=== PATIENT | female | born 1980 | race Caucasian/White ===

== ENCOUNTER 2018-02-28 20:20 | Inpatient (IN) ==
[2018-02-28] MEDS ORDERED: ONDANSETRON 4 MG/2 ML VIAL IVP ONE (20:46)
[2018-02-28] MEDS ORDERED: MORPHINE SULFATE 4 MG/1 ML IVP ONE (20:46)
[2018-02-28] MEDS ORDERED: Sodium Chloride 0.9% 1,000 ML PRIMARY IV ONE (20:46)
--- NOTE | 2018-02-28 20:51 | PDOC ---
Abdomen/Flank HPI - General Chief Complaint: Abdomen Pain Stated Complaint: ABDOMEN PAIN WITH N/V Date Seen by Provider: 02/28/18 Time Seen by Provider: 20:40 Source: POSITIVE: Patient Exam Limitations: POSITIVE: No limitations Nurse's Notes Reviewed & Considered: Yes - History of Present Illness Initial Comments: The patient is a 37-year-old female who presents to the emergency department with increased abdominal pain and vomiting. She states that she had seen her primary care provider earlier this week and had complained about a swelling in her right upper abdomen. She underwent ultrasound which revealed a distended gallbladder with gallstones. She was not really having any particular pain associated with that at that time. The patient had decided she was going to try and dissolve the gallstones with apple cider vinegar. She states that she started to develop some pain in the right upper quadrant yesterday. This pain is significantly worsened today and is associated with nausea and vomiting. She denies any fevers or chills or any other associated symptoms. She has not had any prior abdominal surgeries except for tubal ligation. She is being treated for bacterial vaginitis with Flagyl which is a new medication for her. - Patient Home Medications Home Medications: Home Medications buspirone 10 mg tablet 20 mg PO TID tab 12/13/17 Clonazepam [Klonopin] 0.5 mg PO DAILY 12/23/17 Trazodone HCl 50 mg PO BEDTIME 12/23/17 buprenorphine HCl 2 mg sublingual tablet 2 mg SL TID tab 02/20/18 duloxetine 30 mg capsule,delayed release 30 mg PO QDAY 02/20/18 duloxetine 60 mg capsule,delayed release 60 mg PO QDAY 02/20/18 metronidazole 500 mg tablet 500 mg PO BID #14 tab 02/24/18 - Patient Allergies Allergies/Adverse Reactions: Allergies 3 Allergy/AdvReac Type Severity Reaction Status Date / Time No Known Allergies Allergy Verified 02/28/18 21:56 Past Medical History - heen HEENT History: Denies History Cardiovascular History: Denies History Respiratory History: Denies History Gastrointestinal History: Denies History Genitourinary History: Denies History Endocrine History: Denies History Musculoskeletal History: Denies History Neurological History: Denies History Blood Disorders: Denies History Psychiatric History: Depression, Anxiety Disorders, Eating Disorders, Substance Abuse, Self-Harm Disorders, PTSD History of Sexually Transmitted Diseases: No Cancer History: Denies History History of MDRO: No History of Other Communicable Diseases: No In the Past 12 Months, Have Used or Abuse Any Substance: None Previous Surgical History: No Significant Family History: No pertinent family hx Past Medical History Reviewed: Reviewed - No Changes ROS - Limitations ROS Limitations: No Limitations Constitution: DENIES: Chills, Fever Cardiovascular: REPORTS: Denies Cardiac Symptoms Respiratory: REPORTS: Denies Resp Symptoms Neurological: REPORTS: Denies Neuro Symptoms Gastrointestinal: REPORTS: Abdominal Pain, Nausea, Vomitting Musculoskeletal: REPORTS: Denies MS Symptoms Genitourinary: REPORTS: Denies Symptoms Eyes: REPORTS: Denies Symptoms ENT: REPORTS: Denies Symptoms Skin: DENIES: Rash Abdominal/Flank Pain PE - General Appearance General Appearance: POSITIVE: Alert, Cooperative, No Acute Distress - HEENT HEENT: POSITIVE: Head Inspection Nml - Respiratory Respiratory: POSITIVE: No Respiratory Distress, Breath Sounds Normal - Cardiovascular Cardiovascular: POSITIVE: Regular Rate and Rhythm, Heart Sounds Normal - Abdomen Abdomen: Soft: (All Quadrants), Normal Bowel Sounds: (All Quadrants) Additional Abdominal Details: She does have an area of swelling in the right upper quadrant with associated tenderness even to light palpation, no guarding or rebound tenderness - Skin Skin: POSITIVE: Intact, No Rash - Extremities Extremity: Normal ROM: (All Extremities), Normal Inspection: (All Extremities) - Neurological Neurological: POSITIVE: Oriented X3, project management consultant Normal As Tested, Motor Normal, Sensation Normal Abdomen Progress - Results Reviewed by me Lab Results Reviewed by Me: Yes CBC and BMP: 02/28/18 20:55 02/28/18 21:14 - Patient's Progress MDM / ED Course: On arrival the patient is rating her pain a 7 or 8 out of 10. An IV was established and she received 1 L bolus of normal saline as well as morphine 4 mg IV and Zofran 4 mg IV. She did not really have any significant pain relief with administration of morphine. Lab work reveals normal white count, normal liver enzymes and normal pancreas enzymes. I did discuss the patient with Dr. Montiel. He recommended admission for pain control and likely cholecystectomy. I did discuss the patient with Dr. Allen. The patient does have known cholelithiasis and now has increased pain and tenderness on exam. Decision was made to go ahead and cover with Rocephin and the patient is already taking Flagyl. The patient will be kept nothing by mouth after midnight. These findings and recommendations were discussed with the patient and she is in agreement with this plan. She did receive Dilaudid 1 mg IV for pain. - Consult Counseled: POSITIVE: Patient, RE: Lab Results, RE: DX, RE: Need for F/U Patient Care Time - Estimated PCT Patient Care Time (In Minutes): 30 Vital Signs - VS Reviewed Vital Signs Reviewed: Yes Discharge Clinical Impression: Cholelithiasis, Cholecystitis Discharge Disposition: Admit to Inpatient Condition: Stable Date Decision to Admit to Inpatient: 02/28/18 Time Decision to Admit to Inpatient: 22:00
[2018-02-28 20:59] LABS: BASOPHILS # (AUTO) 0.05 10*3/UL; EOSINOPHILS # (AUTO) 0.11 10*3/UL; EOSINOPHILS % (AUTO) 2.2 % (0-8); Hematocrit [HCT] 36.4 % (37.0-47.0); Hemoglobin [HGB] 12.7 g/dL (12.0-16.0); LYMPHOCYTES # (AUTO) 1.79 10*3/uL; MEAN CORPUSCULAR HEMOGLOBIN 32.5 PG (27-31); MEAN CORPUSCULAR HGB CONC 34.9 g/dL (33-37); MEAN CORPUSCULAR VOLUME 93.1 FL (81-99); MEAN PLATELET VOLUME 9.2 FL (7.4-12.2); MONOCYTES # (AUTO) 0.44 10*3/UL (0.3-0.8); MONOCYTES % (AUTO) 8.9 % (5-15); NEUTROPHILS # (AUTO) 2.55 10*3/UL; NEUTROPHILS % (AUTO) 51.7 % (50-80); RED BLOOD COUNT 3.91 10^6/uL (4.20-5.40)
[2018-02-28 21:15] LABS: PLATELET MORPHOLOGY COMMENT NORMAL MORPHOLOGY (NORM); RBC MORPHOLOGY COMMENT NORMAL MORPHOLOGY (NORM); WBC MORPHOLOGY COMMENT NORMAL MORPHOLOGY (NORM)
[2018-02-28 21:30] LABS: BLOOD UREA NITROGEN 10 mg/dL (7-22); LIPASE 99 IU/L (23-300); SERUM ALBUMIN 3.3 g/dL (3.5-4.8)
[2018-02-28 21:48] LABS: BILIRUBIN,URINE NEGATIVE (NEG); CLARITY,URINE CLEAR (CLEAR); COLOR,URINE YELLOW (Y); GLUCOSE, URINE (UA) NEGATIVE (NEG); OCCULT BLOOD,URINE NEGATIVE (NEG); PROTEIN,URINE NEGATIVE (NEG)
[2018-02-28 21:50] LABS: URINE SAMPLE TYPE CLEAN CATCH URINE
[2018-02-28] MEDS ORDERED: HYDROmorphone 2 MG/1 ML IVP ONE (22:13)
[2018-02-28] MEDS ORDERED: cefTRIAXone Inj 1 GM in Sodium Chloride 0.9% 100 ML IV ONE (22:18)
[2018-02-28] MEDS ORDERED: ONDANSETRON 4 MG/2 ML VIAL IVP PRN (23:11)
[2018-02-28] MEDS ORDERED: LIDOCAINE W/ SODIUM BICARB 0.5 ML SYR SUBD PRN (23:11)
[2018-02-28] MEDS ORDERED: CALCIUM CARBONATE 500 MG (TUMS) CHEWABLE TABLET PO PRN (23:11)
[2018-02-28] MEDS ORDERED: traZODone Tab 50 MG TAB PO PRN (23:14)
--- NOTE | 2018-02-28 23:27 | PDOC ---
HPI - History of Present Illness Date of Service: 02/28/18 Time of Service: 23:00 Chief Complaint: Abdominal pain and vomiting today History of Present Illness: This is a 37 years old female with medical history significant for history of bipolar disorder with depression and anxiety who last Saturday had an ultrasound done because of abnormal physical examination and that ultrasound did show cholelithiasis. However she said she did not have significant abdominal pain. Today she had severe abdominal pain in the right upper quadrant with vomiting she vomited twice and because of that she came into the ER. Her CBC and BMP were normal. The case was discussed with Dr. Montiel who suggested admission. He did suggest admission to the hospitalist service and he'll see her in the morning. Because of the tenderness after discussion with the ER physician we did decide to give her antibiotics and until seen by Dr. Montiel. Apparently she was recently diagnosed with bacterial vaginosis and she is on Flagyl. She is denying fever or other symptoms. Past Medical History Medical History: 1. History of bipolar disorder with depression and anxiety. 2. History of chronic pain Surgical History: 1. History of for knee surgeries. 2. History of tubal ligation Past Social History: She smokes. doesn't drink nor drugs. She lives in a detention here in [place]. Tobacco Use: Current Every Day Smoker In the Past 12 Months, Have Used or Abuse Any of the Following Substance: None Alcohol Use: None Medication / Allergies Home Medications: Home Medications 3 Medication Instructions Recorded Confirmed Type buspirone 10 mg tablet 20 mg PO TID tab 12/13/17 02/28/18 History Clonazepam [Klonopin] 0.5 mg PO DAILY 12/23/17 02/28/18 History Trazodone HCl 50 mg PO BEDTIME 12/23/17 02/28/18 History buprenorphine HCl 2 mg sublingual 2 mg SL TID tab 02/20/18 02/28/18 History tablet duloxetine 30 mg capsule,delayed 30 mg PO QDAY 02/20/18 02/28/18 History release duloxetine 60 mg capsule,delayed 60 mg PO QDAY 02/20/18 02/28/18 History release metronidazole 500 mg tablet 500 mg PO BID #14 tab 02/24/18 02/28/18 Rx Allergies/Adverse Reactions: Allergies 3 Allergy/AdvReac Type Severity Reaction Status Date / Time No Known Allergies Allergy Verified 02/28/18 21:56 Review of Systems - Review of Systems All Systems: Reviewed & No Additional Complaints Except as Stated Exam - Vitals Vital Signs: Vital Signs Temperature 98.3 F Temperature Source Temporal Artery Scan Pulse Rate [Pulse Oximeter] 63 Pulse Rate 63 Respiratory Rate 16 Blood Pressure [Left Arm] 123/89 Blood Pressure 109/79 Pulse Ox 96 Oxygen Delivery Method Room Air Height 5 ft 7 in Weight 120 lb - General General Appearance: No Acute Distress, Cooperative, Thin - Head Head Exam: Normal Inspection - Eye Eye Exam: POSITIVE: Normal Appearance - ENT ENT Exam: POSITIVE: Normal Exam - Neck Neck Exam: Normal Inspection - Respiratory Respiratory Exam: POSITIVE: Clear to Auscultation - Bilaterally - Cardiovascular Cardiovascular Exam: POSITIVE: RRR - GI/Abdominal GI/Abdominal Exam: POSITIVE: Normal Bowel Sounds, Non Distended, Soft Additional GI/Abdominal Exam Details: Some tenderness in the right midabdomen. Question of a mass there. - Rectal Rectal Exam: POSITIVE: Deferred - External Exam: POSITIVE: Deferred Exam: POSITIVE: Deferred - Extremities Extremities Exam: POSITIVE: +1 Edema - Back Back Exam: POSITIVE: Normal Inspection - Neurological Neurological Exam: POSITIVE: Alert, Oriented x 3, CN II-XII Intact, No Facial Droop, Speech Intact / Clear, Moves All Extremities Equally - Psychiatric Psychiatric Exam: POSITIVE: Normal Affect - Integumentary Integumentary Exam: POSITIVE: Normal Color Results - Labs CBC and BMP: 03/01/18 04:30 03/01/18 04:30 Assessment and Plan - Patient Problems (1) Cholelithiasis Current Visit: Yes Status: Acute Comment: I think with the current symptoms of the tenderness will treat as cholecystitis. She did receive Rocephin will continue the Flagyl. Will write for pain medication will keep her nothing by mouth after midnight and will write for pain medication and surgery will see her in the morning. Code(s): K80.20 - Calculus of gallbladder without cholecystitis without obstruction (2) Chronic pain syndrome Current Visit: Yes Status: Acute Comment: She is on Subutex for it. now for the abdominal pain will put her on Dilaudid and will hold off on the Subutex. Code(s): G89.4 - Chronic pain syndrome (3) History of bipolar disorder Current Visit: Yes Status: Acute Comment: Continue her previous medications Code(s): Z86.59 - Personal history of other mental and behavioral disorders (4) Leg swelling Current Visit: Yes Status: Acute Comment: There is some edema in her legs. She is denying shortness of breath, her lung and heart examination is normal. Her albumin is low and she is very thin may be secondary to low albumin. This need follow-up later on as an outpatient. Will order ultrasound of her legs tomorrow. Code(s): M79.89 - Other specified soft tissue disorders
[2018-02-28] MEDS: Lactated Ringers 1,000 ML PRIMARY IV SCH (23:42)
[2018-02-28] MEDS: metroNIDAZOLE 500mg (Premix) 500 MG/100 ML BAG IV SCH (23:43)
[2018-02-28] MEDS: HYDROmorphone 2 MG/1 ML IVP PRN (23:58)
[2018-03-01 05:21] LABS: BASOPHILS # (AUTO) 0.03 10*3/UL; EOSINOPHILS # (AUTO) 0.12 10*3/UL; EOSINOPHILS % (AUTO) 3.9 % (0-8); Hemoglobin [HGB] 10.5 g/dL (12.0-16.0); LYMPHOCYTES # (AUTO) 1.47 10*3/uL; MEAN CORPUSCULAR HEMOGLOBIN 31.3 PG (27-31); MEAN CORPUSCULAR HGB CONC 32.8 g/dL (33-37); MEAN CORPUSCULAR VOLUME 95.2 FL (81-99); MEAN PLATELET VOLUME 10.1 FL (7.4-12.2); MONOCYTES # (AUTO) 0.26 10*3/UL (0.3-0.8); MONOCYTES % (AUTO) 8.4 % (5-15); NEUTROPHILS # (AUTO) 1.23 10*3/UL; NEUTROPHILS % (AUTO) 39.4 % (50-80); RED BLOOD COUNT 3.36 10^6/uL (4.20-5.40)
[2018-03-01 05:45] LABS: BLOOD UREA NITROGEN 11 mg/dL (7-22); BUN/CREATININE RATIO 13.75 (6-20); SERUM ALBUMIN 2.6 g/dL (3.5-4.8)
[2018-03-01 06:09] LABS: PLATELET MORPHOLOGY COMMENT NORMAL MORPHOLOGY (NORM); RBC MORPHOLOGY COMMENT NORMAL MORPHOLOGY (NORM); WBC MORPHOLOGY COMMENT NORMAL MORPHOLOGY (NORM)
[2018-03-01] MEDS: HYDROmorphone 2 MG/1 ML IVP PRN (07:21)
[2018-03-01] MEDS: metroNIDAZOLE 500mg (Premix) 500 MG/100 ML BAG IV SCH ×2 (07:21→15:10)
--- NOTE | 2018-03-01 08:53 | DI ---
EXAM: US Duplex Bilateral Lower Extremity Veins. CLINICAL HISTORY: REASON: Bilateral leg swelling TECHNIQUE: Real-time ultrasound scan of the veins of the bilateral lower extremities with color Doppler flow, spectral waveform analysis and compression. COMPARISON: No relevant prior studies available. FINDINGS: Deep veins: Unremarkable. No DVT in the common femoral, femoral or popliteal veins. Superficial veins: Unremarkable. No thrombus in the visualized greater saphenous veins. Soft tissues: No acute findings. No popliteal cyst. IMPRESSION: No deep venous thrombosis in the bilateral lower extremities.
[2018-03-01] MEDS ORDERED: DULOXETINE 60 MG CAPSULE PO SCH (09:00)
[2018-03-01] MEDS: Lactated Ringers 1,000 ML PRIMARY IV SCH (09:18)
--- NOTE | 2018-03-01 09:22 | CONSULT ---
Consult Note - Consult Consult Date: 03/01/18 Reason for Consult: PreOp Consulation : General Surgery Requesting Physician: Dr. Aleln and Dr. Jimenez Primary Care Provider: RADHA HARRIS - History of Present Illness History of Present Illness: This is a 37-year-old female who had a known history of gallstones. She was worked up by Radha Harris in the clinic. She had an ultrasound that showed a large stone in the neck of the gallbladder. Patient went home trying to see she get resolved with vinegar and apple juice. She came in the emergency department last night with severe right upper quadrant abdominal pain. Pain is a 10 out of 10. She states her notches barely uncomfortable but she is taken Dilaudid. She denies fevers chills. She does have associated nausea and vomiting. No hematochezia hematemesis or melena. Laboratory workup has been completely normal. Review of Systems - Constitutional Constitutional: REPORTS: Negative System Review - Integumentary Integumentary: REPORTS: Negative System Review - Eye Exam Eye Exam: REPORTS: Negative System Review - Ear/Nose Exam Ear/Nose Exam: REPORTS: Negative System Review - Mouth/Throat Mouth/Throat Exam: REPORTS: Negative System Review - Respiratory Respiratory: REPORTS: Negative System Review - Cardiovascular Cardiovascular: REPORTS: Negative System Review - Gastrointestinal Gastrointestinal / Abdominal: REPORTS: Nausea, Vomiting - Genitourinary Genitourinary: REPORTS: Negative System Review - Gynecological Gynecological: REPORTS: Negative System Review - Musculoskeletal Musculoskeletal: REPORTS: Back Pain (Patient has severe scoliosis) - Hematlogic / Lymphatic Hematologic / Lymphatic: REPORTS: Negative System Review - Neurological Neurologic: REPORTS: Negative System Review - Psychiatric Psychiatric: REPORTS: Anxiety, Depressed (Patient has bipolar disorder with depression and anxiety) Past Medical History Medical History: 1. History of bipolar disorder with depression and anxiety. 2. History of chronic pain Surgical History: 1. History of for knee surgeries. 2. History of tubal ligation Past Social History: She smokes. And Saturday, doesn't drink nor drugs. She lives in a care home here in [place]. Tobacco Use: Current Every Day Smoker In the Past 12 Months, Have Used or Abuse Any of the Following Substance: None Alcohol Use: None Medication / Allergies Home Medications: Home Medications 3 Medication Instructions Recorded Confirmed Type buspirone 10 mg tablet 20 mg PO TID tab 12/13/17 02/28/18 History Clonazepam [Klonopin] 0.5 mg PO DAILY 12/23/17 02/28/18 History Trazodone HCl 50 mg PO BEDTIME 12/23/17 02/28/18 History buprenorphine HCl 2 mg sublingual 2 mg SL TID tab 02/20/18 02/28/18 History tablet duloxetine 30 mg capsule,delayed 30 mg PO QDAY 02/20/18 02/28/18 History release duloxetine 60 mg capsule,delayed 60 mg PO QDAY 02/20/18 02/28/18 History release metronidazole 500 mg tablet 500 mg PO BID #14 tab 02/24/18 02/28/18 Rx Allergies/Adverse Reactions: Allergies 3 Allergy/AdvReac Type Severity Reaction Status Date / Time No Known Allergies Allergy Verified 02/28/18 21:56 Results - Labs CBC and BMP: 03/01/18 04:30 03/01/18 04:30 Exam - Vitals Vital Signs: Vital Signs Temperature 97.5 F Temperature Source Tympanic Pulse Rate [Pulse Oximeter] 61 Pulse Rate 63 Respiratory Rate 12 Blood Pressure [Right Arm] 81/58 Blood Pressure [Left Arm] 85/53 Blood Pressure 109/79 Pulse Ox 98 Oxygen Delivery Method Room Air Height 5 ft 7 in Weight 120 lb - General General Appearance: No Acute Distress - Head Head Exam: Normocephalic - Eye Eye Exam: POSITIVE: PERRL, EOMI - Respiratory Respiratory Exam: POSITIVE: Clear to Auscultation - Bilaterally, Breathing Non Labored - GI/Abdominal GI/Abdominal Exam: POSITIVE: Normal Bowel Sounds, Non Tender - Rectal Rectal Exam: POSITIVE: Deferred - External Exam: POSITIVE: Deferred - Extremities Extremities Exam: POSITIVE: Full ROM - Neurological Neurological Exam: POSITIVE: Alert, Oriented x 3, Reflexes Normal - Psychiatric Psychiatric Exam: POSITIVE: Normal Affect, Normal Mood Assessment and Plan - Patient Problems (1) Cholelithiasis Current Visit: Yes Status: Acute Code(s): K80.20 - Calculus of gallbladder without cholecystitis without obstruction - Assessment / Plan Additional Assessment/Plan Details: I would recommend the patient having a laparoscopic cholecystectomy. I have discussed the pathophysiology about gallstones and gallbladder disease. I have discussed the risk of surgery and the potential complications that could occur with the surgery. I also discussed alternative treatment options. I have gone over the surgical technique with the patient. The patient understands this information. I also discussed the difference between single site using the da Toby surgery and also the traditional laparoscopic surgery. The patient be scheduled at the first available date. Questions that the patient had were answered. CPT 72926
[2018-03-01] MEDS ORDERED: BUPIVACAINE 0.25% W/ EPI - 10 ML VIAL ONE (09:34)
[2018-03-01] MEDS ORDERED: Sodium Chloride 0.9% vial 20 ML ONE (09:34)
[2018-03-01] MEDS ORDERED: LIDOCAINE MPF 2% - 5 ML (20 MG/1 ML) ONE (09:48)
[2018-03-01] MEDS ORDERED: PROPOFOL 10 MG/1 ML (200 MG/20 ML) VIAL IV ONE (09:48)
[2018-03-01] MEDS ORDERED: ROCURONIUM 10 MG/1 ML - 5 ML VIAL IVP ONE (09:49)
[2018-03-01] MEDS ORDERED: SUFENTANIL 50 MCG/1 ML ONE (09:50)
[2018-03-01] MEDS ORDERED: MIDAZOLAM 5 MG/1 ML ONE (09:50)
[2018-03-01] MEDS ORDERED: fentaNYL Inj 250 MCG/5 ML VIAL ONE (09:50)
[2018-03-01] MEDS ORDERED: Sodium Chloride 0.9% vial 10 ML ONE (09:53)
[2018-03-01] MEDS: busPIRone HCL 5 MG TABLET PO SCH ×2 (09:54→15:07)
[2018-03-01] MEDS ORDERED: ONDANSETRON 4 MG/2 ML VIAL ONE (10:27)
[2018-03-01] MEDS ORDERED: KETAMINE 100 MG/1 ML - 5 ML ONE (10:28)
[2018-03-01] MEDS ORDERED: Acetaminophen 1000mg Inj 1,000 MG/100 ML VIAL IV ONE (10:28)
[2018-03-01] MEDS ORDERED: Lactated Ringers 1,000 ML PRIMARY IV ONE (10:47)
[2018-03-01] MEDS ORDERED: BUPivacaine Liposome/PF (Exparel) Inj 20ml vial INFIL ONE (11:16)
[2018-03-01] MEDS ORDERED: KETOROLAC 30 MG/1 ML VIAL ONE (11:18)
[2018-03-01] MEDS ORDERED: SUGAMMADEX SODIUM 200 MG/2 ML VIAL IV ONE (11:23)
--- NOTE | 2018-03-01 11:44 | GEN.OPNOTE ---
Operative Note Surgery Date: 03/01/18 Preoperative Diagnosis: Cholelithiasis Postoperative Diagnosis: Cholelithiasis Procedure: Laparoscopic cholecystectomy Surgeon: Jaime Montiel MD Anesthesia Provider: Markie Hare CRNA Anesthesia Type: General Estimated Blood Loss (mL): 10 Fluids: Lactated Ringer's please see anesthesia notes in EMR Pathology: Gallbladder sent Indications: This is a young female who's been having right upper quadrant abdominal pain. Ultrasound showed that she had a stone impacted in the neck of the gallbladder. She has a gallbladder this actually palpable in the right lower quadrant Findings: Patient had a dilated gallbladder that is filled with white fluid. There is a 3 cm stone stuck in the neck of the gallbladder Complications: None Operative Summary: Patient was brought in the operating room. Placed in supine position. Given general anesthetic. Was prepped draped sterile fashion. Timeout performed per protocols. Quarter percent Marcaine was infiltrated at all trocar sites. Small incision made below the umbilicus. Veress needle inserted pneumoperitoneum obtained. After adequate pneumoperitoneum a 10 mm trocar was placed using the Visiport. Under direct laparoscopic visualization a 10 mm trocar subxiphoid and 2 -5 mm in the midclavicular and midaxillary line. Appropriate instrument were placed. Patient had a very dilated gallbladder. I placed large bore needle into the gallbladder and aspirated out 80 mL of white bile. This decompressed the gallbladder enough that we can grasp it. Gallbladder grasped at the fundus retracted over the liver edge. Gallbladder was grasped at Jasmin's pouch. The cystic duct was dissected free. 3 hemoclips placed 2 proximally one distally and the cystic duct was divided. Likewise the cystic artery was dissected free 3 hemoclips placed and divided. The gallbladder was dissected off liver's edge using electrocautery. The gallbladder was then removed through a subumbilical incision. The stone as she had to be crushed in order to remove it. There was a little bit of spillage of the stone into the abdominal cavity. This was irrigated out with irrigation. The abdominal cavity was irrigated until clear. The trochars were removed. The umbilicus incision was closed with 0 Vicryl suture to the fascia. The skin was reapproximated using 4-0 Vicryl simple sutures. The remainder trocar sites were 5 mm defects we will close. The remainder skin incisions closed with 4-0 Vicryl. Steri-Strips applied sterile dressings applied. Patient transferred to recovery room in stable condition. Counts were correct Patient Problems - Patient Problem List (1) Cholelithiasis Current Visit: Yes Status: Acute Code(s): K80.20 - Calculus of gallbladder without cholecystitis without obstruction Category: Medical Procedure Codes - Surgical Procedures Primary Surgical Procedure: 62826 : Cholecystectomy, Lap
[2018-03-01] MEDS ORDERED: oxyCODONE IR Tab 5 MG TAB PO PRN (11:45)
[2018-03-01] MEDS ORDERED: Prochlorperazine Edisylate Inj 10mg/2ml vial IVP PRN (11:52)
[2018-03-01] MEDS ORDERED: HYDROmorphone 2 MG/1 ML IVP PRN (11:52)
[2018-03-01] MEDS ORDERED: LIDOCAINE W/ SODIUM BICARB 0.5 ML SYR SUBD PRN (11:52)
--- NOTE | 2018-03-01 11:52 | CRNA.PROGR ---
Anesthesia Recovery Phase I - Post Anesthesia Evaluation Patient's Condition on Arrival in Phase I: Stable Pain Level: 1
--- NOTE | 2018-03-01 11:53 | CRNA.PROGR ---
Anesthesia Time - Procedure/Recovery Time Start Date: 03/01/18 End Date: 03/01/18 Anesthesia : Time In: 10:08 Anesthesia : Time Out: 11:49 Anesthesia : Total Time: 101 - Total Anesthesia Time Total Anesthesia Time (minutes): 101 - Other Weight: 54.431 kg Height: 5 ft 7 in Body Mass Index (BMI): 18.8 Physical Status: P2 Anesthesia Type: General Anesthesia : ET
[2018-03-01 13:26] VITALS: RESP 12; O2SAT 98
--- NOTE | 2018-03-01 16:10 | DCSUMMARY ---
Hospitalization Summary Admit Date: 02/28/2018 Discharge Date: 03/01/18 Hospital Course: Discharge diagnoses 1. Cholelithiasis status post cholecystectomy 2. History of bipolar disorder with depression and anxiety 3. History of chronic pain syndrome 4. Edema of the legs Hospital course This is a 37 years old female with medical history significant for history of bipolar disorder with depression and anxiety who few days before admission had an ultrasound done because of abnormal physical examination finding and that ultrasound did show cholelithiasis. However that time the patient did not have significant abdominal pain. On the day of admission patient came in with the severe pain in the right upper quadrant with vomiting. Because of that she came into the ER. CBC and BMP were normal. The case was discussed with Dr. Montiel who suggested admission to the hospitalist service. I did admit the patient her physical exam remarkable for tenderness in the right upper quadrant. We did give her a dosage of antibiotics. The patient underwent cholecystectomy the next day. That was uneventful. Post surgery patient did eat and drink and tolerated that. She walked around and later on was discharged. She was discharged to resume her previous chronic pain medication that she takes. She'll follow-up with Dr. Montiel as an outpatient. She follow-up with her primary. Patient did have edema of the legs on physical exam when she came in. Ultrasound of the legs was negative for DVT. Albumin is low. This needs to be followed up later on as an outpatient. Discharge instruction Diet low-fat Activity as started Medication Current Medication(s) 3 Medication Instructions Recorded Confirmed Type buspirone 10 mg tablet 20 mg PO TID tab 12/13/17 02/28/18 History Clonazepam [Klonopin] 0.5 mg PO DAILY 12/23/17 02/28/18 History Trazodone HCl 50 mg PO BEDTIME 12/23/17 02/28/18 History buprenorphine HCl 2 mg sublingual 2 mg SL TID tab 02/20/18 02/28/18 History tablet duloxetine 30 mg capsule,delayed 30 mg PO QDAY 02/20/18 02/28/18 History release duloxetine 60 mg capsule,delayed 60 mg PO QDAY 02/20/18 02/28/18 History release metronidazole 500 mg tablet 500 mg PO BID #14 tab 02/24/18 02/28/18 Rx Follow-up with PCP 1-2 weeks, follow-up with Dr. Montiel 1-2 weeks Condition at discharge was stable for discharge Exam - Vitals Vital Signs: Vital Signs Temperature 97.6 F Temperature Source Axillary Pulse Rate [Pulse Oximeter] 61 Pulse Rate 81 Respiratory Rate 12 Blood Pressure [Right Arm] 98/72 Blood Pressure [Left Arm] 85/53 Blood Pressure 119/85 Pulse Ox 98 Oxygen Flow Rate 2 Oxygen Delivery Method Room Air Height 5 ft 7 in Weight 120 lb - General General Appearance: No Acute Distress, Cooperative, Thin - Head Head Exam: Normal Inspection - Eye Eye Exam: POSITIVE: Normal Appearance - ENT ENT Exam: POSITIVE: Normal Exam - Neck Neck Exam: Normal Inspection - Respiratory Respiratory Exam: POSITIVE: Clear to Auscultation - Bilaterally - Cardiovascular Cardiovascular Exam: POSITIVE: RRR - GI/Abdominal GI/Abdominal Exam: POSITIVE: Normal Bowel Sounds, Non Distended, Soft - Rectal Rectal Exam: POSITIVE: Deferred - External Exam: POSITIVE: Deferred - Extremities Extremities Exam: POSITIVE: +1 Edema - Back Back Exam: POSITIVE: Normal Inspection - Neurological Neurological Exam: POSITIVE: Alert, Oriented x 3, CN II-XII Intact, No Facial Droop, Speech Intact / Clear, Moves All Extremities Equally - Psychiatric Psychiatric Exam: POSITIVE: Normal Affect Patient Problems - Patient Problem List (1) Cholelithiasis Status: Acute Code(s): K80.20 - Calculus of gallbladder without cholecystitis without obstruction Category: Medical (2) Chronic pain syndrome Status: Acute Code(s): G89.4 - Chronic pain syndrome Category: Medical (3) History of bipolar disorder Status: Acute Code(s): Z86.59 - Personal history of other mental and behavioral disorders Category: Medical (4) Leg swelling Status: Acute Code(s): M79.89 - Other specified soft tissue disorders Category: Medical
[2018-03-01 16:22] VITALS: BP 106/85; TEMP 97.5
[2018-03-01] MEDS ORDERED: DULOXETINE 30 MG CAPSULE PO SCH (17:00)
== END 2018-03-01 17:25 | disposition home or self-care (01) | DRG 418 ==
LOC: ER 20:20 → MED/SURG 22:21 → OPS 03-01 10:14 → MED/SURG 03-01 12:16
PROVIDERS: ADMIT Internal Medicine; ATTEND Internal Medicine